=== PATIENT | female | born 1960 | race Caucasian/White ===

== ENCOUNTER 2025-04-06 18:32 | Emergency (ER) | payer MEDICAID ==
[~2025-04-06] VITALS: Ht 154.9 cm; Wt 54.4 kg
[2025-04-06 18:33] VITALS: BP 132/87; TEMP 98.3
[2025-04-06] MEDS ORDERED: IBUPROFEN 600 MG TABLET ONE (19:04)
[2025-04-06] MEDS: IBUPROFEN 600 MG TABLET PO ONE (19:07)
[2025-04-06] MEDS ORDERED: IBUP-1490 PO (19:34)
[2025-04-06 19:39] VITALS: O2SAT 99
== END 2025-04-06 19:46 | disposition home or self-care (01) ==
LOC: ER 18:35
DX: S13.4XXA Sprain of ligaments of cervical spine, initial encounter (principal); V49.88XA Car occupant (driver) (passenger) injured in other specified transport accidents, initial encounter; Y93.89 Activity, other specified; Y92.89 Other specified places as the place of occurrence of the external cause; Y99.8 Other external cause status
CPT/HCPCS: 72040-TC